=== PATIENT | female | born 1950 | race Caucasian/White ===

== ENCOUNTER → 2017-05-01 10:14 | Outpatient (CLI) | payer MEDICARE ==
[2013-10-15 02:03] VITALS: BMI 26.4
[~2017-05-01 10:14] MED LIST: ATIVAN1 MG PO; CARDIZEM120 MG PO; GLUCOPHAGE500 MG PO; IMDUR30 MG PO; LASIX20 MG PO; MICRO-K10 MEQ PO; NEURONTIN 300300 MG PO; PLAVIX75 MG PO; XARELTO10 MG PO; ZOCOR40 MG PO
== END | disposition home or self-care (01) ==
LOC: D.CT 10:14
DX: C85.93 Non-Hodgkin lymphoma, unspecified, intra-abdominal lymph nodes (principal); R53.83 Other fatigue

== ENCOUNTER → 2017-12-31 09:55 | Outpatient (CLI) | payer MEDICARE ==
[2013-10-15 02:03] VITALS: BMI 26.4
== END | disposition home or self-care (01) ==
LOC: D.CT 10-10 12:00
DX: C85.93 Non-Hodgkin lymphoma, unspecified, intra-abdominal lymph nodes (principal)